=== PATIENT | male | born 1935 | race Hispanic/Latino ===

== ENCOUNTER 2020-01-20 09:07 | Day surgery (SDC) | payer OTHER ==
[2020-01-20] VITALS (13 sets, daily range): BP systolic 134–164; BP diastolic 76–90
[~2020-01-20] VITALS: Ht 167.6 cm; Wt 70.3 kg
[~2020-01-20 09:07] MED LIST: AEC81 PO; FINA5TAB41 PO; IOHEXOL-350 50ML VIAL IV ONE; LEVE-43 PO; LEVO75TA10 PO; METO-391 PO; POTA20TA82 PO; ROSU10TA28 PO; TAMS-1 PO
[2020-01-20] MEDS ORDERED: INDOMETHACIN 50 MG SUPP.RECT RC SCH (09:45)
[2020-01-20] MEDS ORDERED: SODIUM CHLORIDE 0.9% 1000ML 1,000 ML IV ONE (10:24)
[2020-01-20] MEDS ORDERED: PROPOFOL 10 MG/ML 20ML VIAL IV ONE (11:09)
[2020-01-20] MEDS ORDERED: ROCURONIUM 10MG/1ML SYR 10 MG/ML ML ONE (11:13)
[2020-01-20] MEDS ORDERED: LIDOCAINE PF 2% 5ML ABBOJECT ONE (11:13)
[2020-01-20] MEDS ORDERED: NEOSTIGMINE 5MG/5ML SYR IV ONE (11:37)
[2020-01-20] MEDS ORDERED: EPHEDRINE SULFATE 50 MG/ML AMPULE ONE (11:38)
[2020-01-20] MEDS ORDERED: EPINEPHRINE 1 MG/ML AMPULE ONE (12:15)
== END 2020-01-20 12:45 | disposition home or self-care (01) ==
LOC: ENDO 09:07 → DAH 09:07 → ENDO 12:45
PROVIDERS: ATTEND Internal Medicine
DX: K80.51 Calculus of bile duct without cholangitis or cholecystitis with obstruction (principal); R93.2 Abnormal findings on diagnostic imaging of liver and biliary tract; I25.10 Atherosclerotic heart disease of native coronary artery without angina pectoris; D64.9 Anemia, unspecified; E78.5 Hyperlipidemia, unspecified; E03.9 Hypothyroidism, unspecified; G40.909 Epilepsy, unspecified, not intractable, without status epilepticus; K21.9 Gastro-esophageal reflux disease without esophagitis; Z86.73 Personal history of transient ischemic attack (TIA), and cerebral infarction without residual deficits; Z79.899 Other long term (current) drug therapy; Z20.828 Contact with and (suspected) exposure to other viral communicable diseases
CPT/HCPCS: 36415; 43264; 43276; 74328; 93005; A4215; A4221; A4222; A4223; A4606; A4657; A4663; C1769; C1773; C1876; C9803; J0171; J2001; J2704; J2710; J3490; J7030 ×2; Q9967; U0003; 43274; 74330